=== PATIENT | female | born 1960 | race Caucasian/White ===

== ENCOUNTER 2021-04-23 15:25 | Emergency (ER) | payer MEDICARE, OTHER ==
[~2021-04-23] VITALS: Ht 170.2 cm; Wt 89.4 kg
[2021-04-23] MEDS ORDERED: FUROSEMIDE20 MG PO (16:36)
[2021-04-23] MEDS ORDERED: HYDROCODON-ACE1 EA10 PO (18:05)
== END 2021-04-23 19:27 | disposition home or self-care (01) ==
LOC: ED 15:25
PROC: 2W3FX1Z Immobilization of Left Hand using Splint (ICD-10-PCS; principal; 2021-04-23)
DX: S62.355A Nondisplaced fracture of shaft of fourth metacarpal bone, left hand, initial encounter for closed fracture (principal); W19.XXXA Unspecified fall, initial encounter
CPT/HCPCS: 29125; 73080; 73090; 73130; 99283-25